=== PATIENT | male | born 1985 | race Caucasian/White ===

== ENCOUNTER 2019-04-05 03:11 | Emergency (ER) | payer OTHER ==
[~2019-04-05] VITALS: Ht 175.3 cm; Wt 83.0 kg
[2019-04-05 03:46] LABS: ABSOLUTE NEUTROPHILS 2.6 thou/uL (1.4-8.2); BASOPHILS 0.7 % (0.0-2.0); HEMATOCRIT 45.5 % (42.0-52.0); HEMOGLOBIN 15.9 gm/dL (14.0-18.0); LYMPHOCYTES 38.6 % (24.0-44.0); MCH 28.6 pg (26.0-34.0); MCV 81.7 fL (80.0-100.0); MONOCYTES 11.4 % (1.0-8.0); PLATELET COUNT 165 thou/uL (150-400); POLYS 46.3 % (36.0-66.0); RBC 5.56 mil/uL (4.50-6.00); RDW 13.3 % (10.5-14.5); WBC 5.6 thou/uL (4.0-11.0)
[2019-04-05 03:54] LABS: ANION GAP 12 mmol/L (7-16); BUN 20 mg/dL (7-18); CALCIUM 9.5 mg/dL (8.5-10.1); CHLORIDE 102 mmol/L (98-107); CO2 26 mmol/L (21-32); CREATININE 1.2 mg/dL (0.7-1.3); GLUCOSE 112 mg/dL (74-106); POTASSIUM 3.4 mmol/L (3.5-5.1); SODIUM 140 mmol/L (136-145)
[2019-04-05 04:02] LABS: TROPONIN-I <0.06 ng/mL (<0.06)
[2019-04-05 04:30] VITALS: BP 128/76
--- NOTE | 2019-04-05 11:44 | EKG ---
[address] [address] ELECTROCARDIOGRAM REPORT Name: MARLINEONEYDA LATHAMO [facility]: [id number] Admission: 04/05/19 Attend Phys: Discharge: 04/05/19 Date of : 83 Report #: [id number] THIS REPORT FOR: //name// [facility] ED Test Date: 2019-04-05 Test Time: 03:41:30 Pat Name: ONEYDA HORAN Department: Room: Gender: Apparel Fashion Designer: JAY : 1985 Requested By: Daniele Lopez Order Number: [id number] MD: Yannick Phan Measurements Intervals [place] Rate: 65 P: 77 MA: 171 QRS: 57 QRSD: 94 T: 21 QT: 396 QTc: 412 Interpretive Statements Sinus rhythm No previous ECG available for comparison Electronically Signed On 04-05-2019 11:43:45 CDT by Yannick Phan [email or web address] <ELECTRONICALLY SIGNED> By: Yannick Phan MD 04/05/19 [id number] Yannick Phan MD /DAVID
== END 2019-04-05 04:30 | disposition home or self-care (01) ==
LOC: ER 03:11
PROVIDERS: Emergency Medicine
DX: R06.02 Shortness of breath (principal)